=== PATIENT | female | born 1930 | race Caucasian/White ===

== ENCOUNTER 2018-03-21 08:47 | Day surgery (SDC) | payer MEDICARE, BC ==
[~2018-03-21] VITALS: Ht 157.5 cm; Wt 46.4 kg
--- NOTE | ~2018-03-21 | OP ---
PATIENT NAME: JOSÉ DALE MEDICAL RECORD: [id number] :32 LOCATION:D.OPS ADMISSION DATE: SURGEON: TIFFANI PHILLIPS DO DATE OF OPERATION: 03/21/2018 PROCEDURE: EGD with biopsies and balloon dilation. INDICATION FOR PROCEDURE: Abnormal barium esophagram and dysphagia. SCOPE: Olympus video gastroscope. MEDICATIONS: Propofol 130 mg IV per anesthesia. ESTIMATED BLOOD LOSS: Minimal. COMPLICATIONS: None. FINDINGS: Informed consent was given. The patient was made comfortable with the above medication. After reaching an adequate level of sedation by slow IV push, the patient was placed on her left side. The endoscope was advanced through the mouth under direct visualization to only the proximal esophagus. At 19 cm from the incisors just distal to the upper esophageal sphincter, an esophageal tumor was visualized. This tumor initially was circumferential, but as the endoscope was advanced down to approximately 21 cm, circumferential involvement could be seen as far distal as the endoscope could visualize in the esophagus. The endoscope was not able to traverse the obstruction. An 8-10 mm CRE dilating balloon was placed through the working channel of the endoscope gently and a dilation was performed up to 9 mm successfully. The endoscope was then again tried to pass through this obstruction unsuccessfully. Multiple cold forceps biopsies were taken and the procedure was terminated. The endoscope was withdrawn from the patient. The patient tolerated the procedure well and there were no complications other than inability to pass the endoscope through the esophageal tumor. IMPRESSION: Esophageal tumor involving the entire esophagus, starting at 19 cm and extending as far down as the endoscope could visualize throughout the esophagus circumferentially. PLAN AND RECOMMENDATIONS: 1. Discharge home when recovery parameters are met. 2. Followup biopsy specimen results. 3. Oncology consultation. 4. We will defer further imaging for staging purposes to oncology. 5. Recommend a liquid diet and trying to intake 3 Boost or Ensure shakes daily to maintain caloric needs. 6. Can consider a J-tube placement if further nutrition is necessary. TRANSINT:[id number] Voice Confirmation ID: [id number] DOCUMENT ID: [id number] OPERATIVE REPORT [id number] JOSÉ DALE TIFFANI PHILLIPS DO at 1148 CC: [id number] DICTATION DATE: 03/21/18 1323 ROCK LATHER: 03/21/18 1356 [facility] 03/21/18 [id number] [place] [address]
[2018-03-21 09:26] LABS: HEMATOCRIT 39.4 % (36.0-48.0); HEMOGLOBIN 12.8 g/dL (12-16); MCH 29.8 pg (26.0-34.0); MCHC 32.5 g/dL (31.0-37.0); MCV 91.6 fL (80.0-100.0); MEAN PLATELET VOLUME 9.6 fL (7.4-10.4); PLATELET COUNT 194 10x3/uL (130-400); WBC 6.8 10x3/uL (4.8-10.8)
[2018-03-21 09:42] LABS: CALC OSMOLALITY 280 mosm/kg (275-300); CALCIUM 9.1 mg/dL (8.5-10.1); CARBON DIOXIDE 34.7 mmol/L (21.0-32.0); CHLORIDE - SERUM 102 mmol/L (98-107); CREATININE - SERUM 0.6 mg/dL (0.6-1.3); GLUCOSE 102 mg/dL (74-106); POTASSIUM - SERUM 4.2 mmol/L (3.5-5.1); SODIUM 141 mmol/L (136-145); UREA NITROGEN 12 mg/dL (7-18); eGFR NON AFRICAN AMERICAN > 90 mL/min (90-120)
[2018-03-21 09:50] LABS: BASOPHILS 0.4 % (0-2); EOSINOPHILS 3.9 % (0-7); IMMATURE GRANULOCYTES 0.3 % (0-5); LYMPHOCYTES 20.7 % (15-50); MONOCYTES 4.5 % (2-11); NEUTROPHILS 70.2 % (40-80)
[2018-03-21 11:51] VITALS: BP 125/67; Ht 157.5 cm; Wt 46.4 kg
== END 2018-03-21 14:29 | disposition home or self-care (01) ==
LOC: D.OPS 08:47
PROVIDERS: Anesthesiology
DX: C15.9 Malignant neoplasm of esophagus, unspecified (principal)

== ENCOUNTER 2018-08-24 06:28 | Day surgery (SDC) | payer MEDICARE, BC ==
[~2018-08-24] VITALS: Ht 157.5 cm; Wt 46.4 kg
[2018-08-24 06:51] LABS: BASOPHILS 0.4 % (0-2); EOSINOPHILS 2.2 % (0-7); HEMATOCRIT 32.5 % (36.0-48.0); HEMOGLOBIN 10.4 g/dL (12-16); IMMATURE GRANULOCYTES 0.4 % (0-5); LYMPHOCYTES 9.8 % (15-50); MCH 30.5 pg (26.0-34.0); MCV 95.3 fL (80.0-100.0); MEAN PLATELET VOLUME 8.3 fL (7.4-10.4); NEUTROPHILS 79.2 % (40-80); RBC 3.41 10x6/uL (4.00-5.40); RDW 14.4 % (11.5-14.5); WBC 5.5 10x3/uL (4.8-10.8)
[2018-08-24 07:02] LABS: CALC OSMOLALITY 275 mosm/kg (275-300); CALCIUM 9.4 mg/dL (8.5-10.1); CARBON DIOXIDE 28.5 mmol/L (21.0-32.0); CHLORIDE - SERUM 101 mmol/L (98-107); CREATININE - SERUM 0.6 mg/dL (0.6-1.3); GLUCOSE 94 mg/dL (74-106); POTASSIUM - SERUM 3.6 mmol/L (3.5-5.1); SODIUM 139 mmol/L (136-145); UREA NITROGEN 8 mg/dL (7-18); eGFR NON AFRICAN AMERICAN > 90 mL/min (90-120)
[2018-08-24 07:03] LABS: PLATELET COUNT 246 10x3/uL (130-400)
[2018-08-24] MEDS ORDERED: MULTI-DAY VITAM1 TAB (08:02)
[2018-08-24 08:18] VITALS: BP 115/55; Ht 157.5 cm; Wt 46.4 kg
--- NOTE | 2018-08-29 15:47 | OP ---
PATIENT NAME: JOSÉ DALE MEDICAL RECORD: [id number] :32 LOCATION:[facility] ADMISSION DATE: SURGEON: TIFFANI PHILLIPS DO DATE OF OPERATION: 08/24/2018 PROCEDURE: EGD with balloon dilation. INDICATIONS FOR PROCEDURE: History of squamous cell cancer of the esophagus, status post chemoradiation. This is a restaging study. SCOPE: Olympus video gastroscope. MEDICATIONS: Propofol 100 mg IV per anesthesia. ESTIMATED BLOOD LOSS: Minimal. COMPLICATIONS: None immediate. FINDINGS: This is an 87-year-old female with a history of squamous cell carcinoma of the esophagus, which was diagnosed on an upper endoscopy on 03/21/2018. At that time, her tumor began at approximately 19 cm from the incisors and proceeded down the esophagus as far down as could be seen endoscopically. The endoscope could not be traversed through the tumor at that time, so the exact extent of tumor outside of imaging was unknown. Today's examination was for restaging status post chemotherapy and radiation therapy. DESCRIPTION OF PROCEDURE: The patient was given propofol slowly until she reached an adequate level of sedation. She was placed on her left side. The endoscope was advanced under direct visualization through the mouth through the posterior oropharynx into the esophagus. The scope could not be advanced beyond approximately 20 cm. At this point, the previous site of the tumor was encountered. Endoscopically, there were no abnormalities other than some stricturing of the esophagus status post treatment. The esophagus was smooth with no specific tumor tissue visualized. The diameter of the stricture was approximately 8-mm total. A 05/26/12 CRE balloon was placed through the working channel of the endoscope to try to facilitate passage of the endoscope. The entire esophagus was dilated to approximately 9-mm maximum. At this time, there was a moderate amount of bleeding and the small mucosal tear visualized. This still was not an adequate dilation for the endoscope to be passed through the esophagus. Due to the patient's condition and the fragility of the esophagus status post chemotherapy and radiation therapy and dilation with a mucosal tear, no biopsies were performed and the endoscope was not attempted to pass through this site again. That being said, endoscopic appearances looked dramatically improved from the previous examination with no obvious tumor tissue for any targeted biopsies. The endoscope was withdrawn from the patient. The patient tolerated the procedure well and there were no complications. IMPRESSIONS: Squamous cell carcinoma of the esophagus status post chemotherapy and radiation with very good effect. There is no residual tumor tissue visualized endoscopically on today's examination. No biopsies were taken today based on the events during the procedure. Please see above description. PLAN AND RECOMMENDATIONS: 1. Discharge home when recovery parameters are met. 2. Follow up in the oncology clinic as scheduled. OPERATIVE REPORT [id number] JOSÉ DALE 3. Recommend following the PET scans. Repeat endoscopy can be performed if needed in the future for direct visualization or if random biopsies are necessary. 4. I do not believe the narrowed esophagus will ever be able to be dilated enough to facilitate easy and safe passage of the endoscope. If the patient experiences significant dysphagia, which she denies at this point, symptomatic therapy such as an esophageal stent can be considered for long-term dilation. TRANSINT:[id number] Voice Confirmation ID: [id number] DOCUMENT ID: [id number] TIFFANI PHILLIPS DO at 1547 CC: [id number] DICTATION DATE: 08/24/18 1021 PEANUT VENDOR: 08/24/18 1146 [facility] 08/24/18 [facility] [address] [place] [address]
== END 2018-08-24 11:22 | disposition home or self-care (01) ==
LOC: D.OPS 06:28
PROVIDERS: Anesthesiology
DX: Z85.01 Personal history of malignant neoplasm of esophagus (principal); Z92.3 Personal history of irradiation; Z92.21 Personal history of antineoplastic chemotherapy; Z01.812 Encounter for preprocedural laboratory examination

== ENCOUNTER 2019-03-31 06:17 | Day surgery (SDC) | payer MEDICARE, BC ==
[2018-08-24 08:18] VITALS: Wt 46.3 kg
[~2019-03-31 06:17] MED LIST: CELEXA10 MG PO; MULTI-DAY VITAM1 TAB
[2019-03-31 06:45] LABS: BASOPHILS 0.2 % (0-2); EOSINOPHILS 3.1 % (0-7); HEMATOCRIT 37.6 % (36.0-48.0); HEMOGLOBIN 12.6 g/dL (12-16); IMMATURE GRANULOCYTES 0.2 % (0-5); LYMPHOCYTES 9.4 % (15-50); MCHC 33.5 g/dL (31.0-37.0); MCV 92.6 fL (80.0-100.0); MEAN PLATELET VOLUME 9.2 fL (7.4-10.4); MONOCYTES 7.9 % (2-11); NEUTROPHILS 79.2 % (40-80); PLATELET COUNT 216 10x3/uL (130-400); RBC 4.06 10x6/uL (4.00-5.40); RDW 12.8 % (11.5-14.5); WBC 5.2 10x3/uL (4.8-10.8)
[2019-03-31 06:48] LABS: ANION GAP 8.5 mmol/L (8-16); CALCIUM 9.7 mg/dL (8.5-10.1); CARBON DIOXIDE 33.1 mmol/L (21.0-32.0); CREATININE - SERUM 0.8 mg/dL (0.6-1.3); POTASSIUM - SERUM 3.6 mmol/L (3.5-5.1)
--- NOTE | 2019-04-04 11:07 | OP ---
PATIENT NAME: JOSÉ DALE MEDICAL RECORD: [id number] :32 LOCATION:D.[facility] ADMISSION DATE: SURGEON: RAMIREZ GAMBLE MD DATE OF OPERATION: 03/31/2019 PREOPERATIVE DIAGNOSIS: Radiation-induced stricture of the esophagus. POSTOPERATIVE DIAGNOSIS: Radiation-induced stricture of the esophagus. PROCEDURES: 1. Esophagoscopy with endoscopic placement of 23-mm x 153-mm partially covered esophageal stent under fluoroscopic guidance. 2. Immediate surgeon interpretation of the fluoroscopic images. SURGEON: Ramirez Gamble MD VACUUM DRUM DRIER OPERATOR: None. BLOOD LOSS: Minimal. ANESTHESIA: General. COMPLICATIONS: None. No radiologist was present for this procedure. Static fluoroscopic images were obtained and these are kept in the PACS system. The surgeon interpretation of the radiographic images is dictated within the body of this operative note. OPERATIVE COURSE: The patient was conveyed to the operating room electively on 03/31/2019. General anesthesia was induced by the anesthesia staff. The patient was positioned supine. A bite block was inserted. A gastroscope was inserted into the mouth. It was advanced easily into the hypopharynx. The esophagus was easily intubated. The stricture was noted. It was very tight. I was unable to traverse the strictured area with the gastroscope nor did I try to do so as the area was very friable, very tight and there was exudate over this area. The stricture site was marked with a metallic clip on the skin. The Glow 'N Tell Tape was applied over the chest as well. Through the endoscope, I advanced a 0.035 Jagwire. Under fluoroscopy, this could be seen coursing down the esophagus into the stomach. I then withdrew the gastroscope over the Jagwire. Over the Jagwire, I then loaded and advanced a Wallstent. It was advanced and deployed. I was satisfied with the deployment of the stent. I really could not deploy any higher as this would have been almost at the level of the cricopharyngeus and would have made swallowing difficult and would lead to intractable pain in the neck. The deployment device was then removed as was the wire. I then re-endoscoped the patient's esophagus. Although the stent had dilated the strictured area to some degree, we could still see a waist on the fluoroscopic images. In order to help prevent the stent from migrating, I took 2 endoscopic clips and clipped the stent to the surrounding esophagus to hopefully help prevent a distal migration. The gastroscope was then removed. The patient was then extubated and conveyed to the post-anesthesia care unit. I have given instructions regarding eating to OPERATIVE REPORT [id number] JOSÉ DALE the patient's . She needs to eat only thin foods. She is to sit straight up when she eats and swallow each carefully chewed bite of food with a little bit of liquid. Sitting up or standing up while she is eating will help as gravity will help pull the food down through the stent. I would like to see her in the office in about 4 weeks. The chest x-ray in the recovery room demonstrated that the stent was still in place and had not migrated. It also revealed that there was a secondary stent, which appeared to be a fully covered stent that was loose in the stomach and this is also per the patient's history. TRANSINT:[id number] Voice Confirmation ID: [id number] DOCUMENT ID: [id number] RAMIREZ GAMBLE MD at 1107 CC: MALATHI RANDLE MD, MAXINE REDDING and TIFFANI PHILLIPS DO [id number] DICTATION DATE: 04/01/19908 TENTER FRAME OPERATOR: 04/01/19 0950 [facility] 03/31/19 [id number] [place] [address]
== END 2019-03-31 13:30 | disposition home or self-care (01) ==
LOC: D.OPS 06:17 → D.PAN 09:00 → D.OPS 09:00
PROVIDERS: Anesthesiology; ATTEND Surgery
DX: K22.2 Esophageal obstruction (principal)

== ENCOUNTER → 2019-05-04 10:16 | Outpatient (CLI) | payer MEDICARE, BC ==
[2018-08-24 08:18] VITALS: BMI 18.7
== END | disposition home or self-care (01) ==
LOC: D.RAD 10:16
PROVIDERS: ATTEND Surgery
DX: K22.2 Esophageal obstruction (principal)

== ENCOUNTER 2019-05-31 06:33 | Day surgery (SDC) | payer MEDICARE, BC ==
[~2019-05-31] VITALS: Ht 157.5 cm; Wt 44.9 kg
[2019-05-31 06:57] LABS: BASOPHILS 0.3 % (0-2); EOSINOPHILS 2.5 % (0-7); HEMATOCRIT 36.9 % (36.0-48.0); HEMOGLOBIN 11.8 g/dL (12-16); IMMATURE GRANULOCYTES 0.3 % (0-5); LYMPHOCYTES 7.7 % (15-50); MCH 29.9 pg (26.0-34.0); MCV 93.4 fL (80.0-100.0); MEAN PLATELET VOLUME 8.5 fL (7.4-10.4); NEUTROPHILS 81.2 % (40-80); PLATELET COUNT 290 10x3/uL (130-400); RBC 3.95 10x6/uL (4.00-5.40); RDW 13.3 % (11.5-14.5); WBC 7.5 10x3/uL (4.8-10.8)
[2019-05-31 07:13] LABS: CALC OSMOLALITY 278 mosm/kg (275-300); CALCIUM 9.6 mg/dL (8.5-10.1); CARBON DIOXIDE 33.5 mmol/L (21.0-32.0); CHLORIDE - SERUM 101 mmol/L (98-107); CREATININE - SERUM 0.6 mg/dL (0.6-1.3); GLUCOSE 114 mg/dL (74-106); POTASSIUM - SERUM 4.3 mmol/L (3.5-5.1); SODIUM 140 mmol/L (136-145); UREA NITROGEN 9 mg/dL (7-18); eGFR NON AFRICAN AMERICAN > 90 mL/min (90-120)
[2019-05-31 07:16] LABS: INR 0.93 (0.85-1.17)
[2019-05-31] MEDS ORDERED: SYNTHROID25 MCG PO (07:41)
[2019-05-31 07:42] VITALS: BP 112/61; Ht 157.5 cm; Wt 44.9 kg
--- NOTE | 2019-05-31 08:06 | NUR ---
CALLED DR. Mistry at this time to orders for EGD with stent removal. DR. Mistry states to continue as ordered.
--- NOTE | 2019-05-31 11:49 | NUR ---
SCANT BLOODY SPUTUM AND SLIGHT NAUSEA @1126 ZOFRAN GIVEN @1131
--- NOTE | 2019-05-31 13:17 | NUR ---
1305-DISCHARGE CRITERIA MET. REMOVED IV FROM LEFT HAND WITH CATH INTACT,DISPOSED INTO SHARPS,COVERED SITE WITH BANDAID. REVIEWED POST OPERATIVE INSTRUCTIONS.VERBALIZED UNDERSTANDING. ESCORTED OUT VIA W/C WITH BROTHER IN LAW AWAITING TO DRIVE HOME. STABLE CONDITION WITH DISCHARGE INSTRUCTIONS AND SCRIPTS IN BROWN ENVELOPE.
--- NOTE | 2019-06-01 21:29 | OP ---
PATIENT NAME: JOSÉ DALE MEDICAL RECORD: [id number] :32 LOCATION:D.OPS ADMISSION DATE: SURGEON: RAMIREZ GAMBLE MD DATE OF OPERATION: 05/31/2019 PREOPERATIVE DIAGNOSES: 1. Indwelling esophageal stent, desires removal. 2. History of paroxysmal tight distal esophageal stricture. POSTOPERATIVE DIAGNOSES: 1. Indwelling esophageal stent, desires removal. 2. History of paroxysmal tight distal esophageal stricture. PROCEDURE: Esophagogastroscopy with stent removal. SURGEON: Ramirez Gamble MD ACCOUNT STRATEGIST: None. BLOOD LOSS: 50 cc. ANESTHESIA: General. COMPLICATIONS: None. The risks, possible complications and alternatives to the procedure were explained to the patient. She elects to proceed. The discussion specifically included, but was not limited to, bleeding requiring emergency reoperation, infection, esophageal perforation, mediastinitis. OPERATIVE COURSE: The patient was conveyed to the operating room electively on 05/31/2019. General anesthesia was induced by the anesthesia staff. A bite block was inserted. A gastroscope was inserted into the mouth. It was advanced easily into the hypopharynx. The esophagus was easily intubated as was the stomach. The abandoned stent was seen in the stomach. I then withdrew into the proximal esophagus. I grasped one of the fixation clips and removed it. I then grasped the string with the toothed grasper. I withdrew the stent in its entirety. I then re-endoscoped the esophagus and stomach. There had been no evidence of false passage or perforation. The endoscope was then withdrawn under direct vision. The patient will be dismissed home. I will see her in the office in 4 weeks. From my standpoint, she can have regular diet. TRANSINT:[id number] Voice Confirmation ID: [id number] DOCUMENT ID: [id number] OPERATIVE REPORT [id number] ALE DALEANOR Deshaun RAMIREZ GAMBLE MD at 2044 CC: MALATHI RANDLE MD and TIFFANI PHILLIPS DO [id number] DICTATION DATE: 05/31/19 1100 DEWATERER OPERATOR: 05/31/19 1219 [facility] 05/31/19 [id number] [place] [id number]
[2019-07-11] MEDS ORDERED: PROTONIX40 MG PO (13:52)
== END 2019-05-31 13:05 | disposition home or self-care (01) ==
LOC: D.OPS 06:33 → D.PAN 09:30 → D.OPS 13:05
PROVIDERS: Anesthesiology; ATTEND Surgery
DX: K22.8 Other specified diseases of esophagus (principal); Z97.8 Presence of other specified devices

== ENCOUNTER → 2019-06-21 09:25 | Outpatient (CLI) | payer MEDICARE, BC ==
[2019-05-31 07:42] VITALS: BMI 18.1
[~2019-06-21 09:25] MED LIST changes: +PROTONIX40 MG PO; +SYNTHROID25 MCG PO
== END | disposition home or self-care (01) ==
LOC: D.RAD 09:25
PROVIDERS: ATTEND Surgery
DX: R13.10 Dysphagia, unspecified (principal)

== ENCOUNTER 2019-07-12 07:02 | Day surgery (SDC) | payer MEDICARE, BC ==
[~2019-07-12] VITALS: Ht 157.5 cm; Wt 40.8 kg
--- NOTE | ~2019-07-12 | OP ---
PATIENT NAME: JOSÉ DALE MEDICAL RECORD: [id number] :32 LOCATION:D.OPS ADMISSION DATE: SURGEON: RAMIREZ GAMBLE MD DATE OF OPERATION: 07/12/2019 PREOPERATIVE DIAGNOSIS: Dysphagia. POSTOPERATIVE DIAGNOSES: 1. Recurrent esophageal strictures likely due to a recurrent malignancy. 2. Polypoid lesion proximally at 20 cm, which is likely related to the malignancy; however, it had a smooth covering. PROCEDURES: 1. Esophagogastroduodenoscopy with antral and esophageal biopsies. 2. Snare polypectomy of the polypoid mass within the esophagus at 20 cm. 3. Balloon dilation of esophagus to 33-Palestinian. SURGEON: Ramirez Gamble MD CHIEF OF FIELD OPERATIONS: None. BLOOD LOSS: Minimal. ANESTHESIA: General. COMPLICATIONS: None. This procedure was performed in the operating room as the patient is a risk for aspiration. OPERATIVE COURSE: The patient was conveyed the operating room electively on 07/12/2019. General anesthesia was induced by the anesthesia staff. A bite block was inserted. A gastroscope was inserted into the mouth. It was advanced easily into the hypopharynx. The esophagus was easily intubated. I then got to a point where I identified a polypoid mass, which was shaped like a balloon and appeared to have mucosa over it. I was not sure what this represented. I advanced a snare and was able to snare the base of the polyp. Utilizing the coagulation setting and the cut setting, I was able to perform a snare polypectomy. Unfortunately, the polyp fell down the esophagus and was ultimately lost and for that reason, we did not have a biopsy. I was unable to pass the gastroscope down the esophagus due to strictures. The first stricture was from 20 cm to 24 cm from the incisors. I predilated to 33-Palestinian with a balloon dilator. I then traversed this stricture and identified a fairly normal area of moderate esophagitis that did not appear to have a malignancy present. Just above the EG junction, there was another area, which was very tight and here again I could not traverse this area, which I believe represents circumferential recurrence of a malignancy. I advanced a blue dilator and predilated to 33-Palestinian. I was then able to traverse this secondary strictured area. The stomach was examined as was the duodenum. I withdrew into the stomach. Cold antral biopsies were obtained to check for Helicobacter pylori. A retroflexed view was obtained. I then unretroflexed the scope and removed it under direct vision. OPERATIVE REPORT [id number] JOSÉ DALE Upon pulling back through the esophagus, I noted no full thickness injury. There was some bleeding. Some trauma from the esophageal dilation as well. There was one area that was very firm, it appeared to be a recurrent malignancy and a cold endoscopic biopsy was performed here. The endoscope was then withdrawn under direct vision. I am going to plan for placement of another esophageal stent sometime in the future. I contacted Dr. Derick Joyner by phone and told him of the endoscopic findings. TRANSINT:[id number] Voice Confirmation ID: [id number] DOCUMENT ID: [id number] RAMIREZ GAMBLE MD CC: JOCELIN JOYNER MD and MAXINE REDDING [id number] DICTATION DATE: 07/19/191839 ACOUSTICAL TILE CARPENTERS SUPERVISOR: 07/20/19 0029 [facility] 07/12/19 [facility] [address] [place] [address]
[2019-07-12 07:32] LABS: APTT 27.6 SECONDS (22.8-39.4); INR 0.98 (0.85-1.17); PROTIME 12.5 SECONDS (11.6-15.0)
[2019-07-12 07:34] LABS: GLUCOSE 110 mg/dL (74-106); UREA NITROGEN 8 mg/dL (7-18)
[2019-07-12 07:35] LABS: CALC OSMOLALITY 274 mosm/kg (275-300); CALCIUM 9.3 mg/dL (8.5-10.1); CARBON DIOXIDE 31.4 mmol/L (21.0-32.0); CHLORIDE - SERUM 101 mmol/L (98-107); CREATININE - SERUM 0.6 mg/dL (0.6-1.3); SODIUM 138 mmol/L (136-145); eGFR NON AFRICAN AMERICAN > 90 mL/min (90-120)
[2019-07-12 07:53] VITALS: BP 126/59; Ht 157.5 cm; Wt 40.8 kg
[2019-07-12 08:10] LABS: BASOPHILS 0.4 % (0-2); EOSINOPHILS 3.1 % (0-7); HEMATOCRIT 35.9 % (36.0-48.0); HEMOGLOBIN 11.4 g/dL (12-16); IMMATURE GRANULOCYTES 0.2 % (0-5); LYMPHOCYTES 7.1 % (15-50); MCH 29.4 pg (26.0-34.0); MCHC 31.8 g/dL (31.0-37.0); MCV 92.5 fL (80.0-100.0); MEAN PLATELET VOLUME 9.3 fL (7.4-10.4); MONOCYTES 7.3 % (2-11); NEUTROPHILS 81.9 % (40-80); PLATELET COUNT 288 10x3/uL (130-400); RBC 3.88 10x6/uL (4.00-5.40); RDW 13.9 % (11.5-14.5); WBC 5.1 10x3/uL (4.8-10.8)
--- NOTE | 2019-07-12 15:25 | NUR ---
1515 DR GAMBLE HERE TO TALK WITH PT AND FAMILY. IV REMOVED AND PRESSURE HELD
== END 2019-07-12 15:45 | disposition home or self-care (01) ==
LOC: D.OPS 07:02 → D.PAN 12:15 → D.OPS 15:45
PROVIDERS: Anesthesiology; ATTEND Surgery
DX: K22.2 Esophageal obstruction (principal); Z85.01 Personal history of malignant neoplasm of esophagus; R13.10 Dysphagia, unspecified

== ENCOUNTER 2019-07-25 09:08 | Day surgery (SDC) | payer MEDICARE, BC ==
[~2019-07-25] VITALS: Ht 157.5 cm; Wt 45.0 kg
[2019-07-25 09:29] LABS: BASOPHILS 0 % (0-2); EOSINOPHILS 2.4 % (0-7); HEMATOCRIT 35.6 % (36.0-48.0); HEMOGLOBIN 11.3 g/dL (12-16); IMMATURE GRANULOCYTES 0.2 % (0-5); LYMPHOCYTES 9.8 % (15-50); MCH 29.1 pg (26.0-34.0); MCHC 31.7 g/dL (31.0-37.0); MCV 91.8 fL (80.0-100.0); MEAN PLATELET VOLUME 8.5 fL (7.4-10.4); MONOCYTES 9.2 % (2-11); NEUTROPHILS 78.4 % (40-80); PLATELET COUNT 246 10x3/uL (130-400); RBC 3.88 10x6/uL (4.00-5.40); RDW 13.5 % (11.5-14.5); WBC 5.1 10x3/uL (4.8-10.8)
[2019-07-25 09:36] LABS: APTT 26.5 SECONDS (22.8-39.4); INR 0.97 (0.85-1.17); PROTIME 12.4 SECONDS (11.6-15.0)
[2019-07-25 09:39] LABS: CALC OSMOLALITY 272 mosm/kg (275-300); CALCIUM 9.6 mg/dL (8.5-10.1); CARBON DIOXIDE 31.1 mmol/L (21.0-32.0); CHLORIDE - SERUM 101 mmol/L (98-107); CREATININE - SERUM 0.7 mg/dL (0.6-1.3); GLUCOSE 111 mg/dL (74-106); POTASSIUM - SERUM 3.8 mmol/L (3.5-5.1); SODIUM 137 mmol/L (136-145); UREA NITROGEN 6 mg/dL (7-18); eGFR NON AFRICAN AMERICAN 84 mL/min (90-120)
[2019-07-25 10:34] VITALS: Ht 157.5 cm; Wt 45.0 kg
--- NOTE | 2019-07-25 14:46 | NUR ---
DC INSTRUCTIONS GIVEN TO PT. STATES UNDERSTANDING. DC'D IV CATH FULLY INTACT.
--- NOTE | 2019-07-25 14:52 | NUR ---
PT WAS FOUND ON FLOOR NEXT TO CLOSET. PT STATES SHE "LOST MY BALANCE" AND HIT HER CHEEKBONE ON SIDE OF VITAL SIGN MACHINE. SLIGHT REDNESS NOTED TO RIGHT SIDE OF CHEEKBONE. PT STATES HITTING R FA ON BOTTOM OF VITAL SIGN MACHINE. BRUISING NOTED TO MEDIAL ASPECT OF FA BELOW THE ELBOW. PT STATES HAVING NO PAIN AT THIS TIME. CALLED DR. GAMBLE IN INFORM OF PT'S SITUATION. HE ORDERED X-RAY OF RIGHT ARM. WILL CONTINUE TO MONITOR.
--- NOTE | 2019-07-25 15:07 | NUR ---
PT BED WAS HIGH STRETCHER BED
--- NOTE | 2019-07-25 15:39 | NUR ---
PT LEFT UNIT VIA WC AT 1538. X-RAY RESULTS SHOWED NO FX OR SOFT TISSUE ABNORMAILITIES.
--- NOTE | 2019-07-26 11:02 | HP ---
PATIENT: JOSÉ DALE MEDICAL RECORD: [id number] ACCOUNT: [id number] LOCATION:[facility] : 32 ADMISSION DATE: 07/25/19 PCP: MALATHI RANDLE MD HISTORY AND PHYSICAL EXAMINATION PREOPERATIVE DIAGNOSIS: History of esophageal cancer. HISTORY OF PRESENT ILLNESS: The patient recently underwent EGD with esophageal dilation and biopsies. The biopsies failed to reveal a malignancy, although I believe that the patient does have a malignancy present. She has had a previous permanent esophageal stent removed. Another esophageal stent that was not placed by me ended up migrating into the stomach. Today, my plan is to perform an EGD with biopsies of the esophagus and possible esophageal dilation. SOCIAL HISTORY: Nonsmoker. PAST MEDICAL AND SURGICAL HISTORY: Esophageal cancer, history of hysterectomy, arthritis, hypothyroidism. ALLERGIES: SULFA, WHICH CAUSES A RASH. HOME MEDICINES: Celexa, Protonix, levothyroxine. PHYSICAL EXAMINATION: GENERAL: The patient does not appear acutely ill. She does not appear chronically ill. VITAL SIGNS: Reviewed. EARS: External ears appear normal. EYES: Extraocular movements are intact. NECK: Trachea is midline. CHEST: No intercostal retractions. PULMONARY: Nonlabored and no stridor. IMPRESSION: History of esophageal stricture, which I believe are malignant strictures. PLAN: EGD with biopsies in order to obtain a tissue diagnosis. TRANSINT:[id number] Voice Confirmation ID: [id number] DOCUMENT ID: [id number] RAMIREZ GAMBLE MD at 1102 CC: JOCELIN BARROSO MD and TIFFANI PHILLIPS DO [id number] DICTATION DATE: 07/25/19 1351 STOCKBROKER: 07/25/19 1747 [facility] 07/25/[address] [facility] [address] [place] [address]
--- NOTE | 2019-07-26 11:05 | OP ---
PATIENT NAME: JOSÉ DALE MEDICAL RECORD: [id number] :32 LOCATION:D.OPS ADMISSION DATE: SURGEON: RAMIREZ GAMBLE MD DATE OF OPERATION: 07/25/2019 PREOPERATIVE DIAGNOSIS: History of esophageal cancer with stricturing that was recently treated with balloon angioplasty. POSTOPERATIVE DIAGNOSES: 1. History of esophageal cancer with stricturing that was recently treated with balloon angioplasty with some restricturing; however, there is a patent lumen; however, the lumen would not allow me to advance the scope all the way down into the stomach. 2. There is a new nodular growth where I had removed a nodular growth in the past at about 20-22 cm. PROCEDURE: Esophagoscopy with biopsy. SURGEON: Ramirez Gamble MD CHEMISTRY INSTRUCTOR: None. BLOOD LOSS: 5 cc. ANESTHESIA: IV sedation. COMPLICATIONS: None. The risks, possible complications and alternatives to the procedure were explained to the patient. She elects to proceed. I told the patient that this was not going to be necessarily a therapeutic procedure, but a diagnostic procedure because we would like to get some tissue and make a tissue diagnosis. Specifically I am looking for a tissue diagnosis of a malignancy. ENDOSCOPIC COURSE: The patient was conveyed to endoscopy suite electively on 07/25/2019. IV sedation was induced by the anesthesia staff. A bite block was inserted. A gastroscope was inserted into the mouth. It was advanced easily into the hypopharynx. The esophagus was easily intubated. I advanced to about 20 cm and could not advance the scope further due to this nodular growth. The growth was removed utilizing the cold endoscopic biopsy forceps. I did not attempt to re-dilate after this for fear that I would cause an esophageal rupture. I did not try to force the scope down through the strictured esophagus. The endoscope was then withdrawn under direct vision. PLAN: I will plan for a permanent stent sometime in the future. Even if we have a biopsy that was negative for malignancy, she is going to need a stent to expand the esophagus, so that she can eat. TRANSINT:[id number] Voice Confirmation ID: [id number] DOCUMENT ID: [id number] OPERATIVE REPORT [id number] ALE DALEANOR Deshaun RAMIREZ GAMBLE MD at 1105 CC: JOCELIN BARROSO MD and MAXINE REDDING [id number] DICTATION DATE: 07/25/192103 SILVER SOLDERER: 07/25/19 2348 [facility] 07/25/19 [place] [id number] [place] [id number]
== END 2019-07-25 15:38 | disposition home or self-care (01) ==
LOC: D.OPS 09:08
PROVIDERS: Anesthesiology; ATTEND Surgery
DX: Z85.01 Personal history of malignant neoplasm of esophagus (principal)

== ENCOUNTER 2019-08-11 07:05 | Day surgery (SDC) | payer MEDICARE, BC ==
[~2019-08-11] VITALS: Ht 157.5 cm; Wt 43.5 kg
[~2019-08-11 07:05] MED LIST changes: +ASPERCREME 5 OZ5 OZ; +MEGACE40 MG PO; +MULTIVITAMIN
[2019-08-11 07:36] LABS: BASOPHILS 0.2 % (0-2); EOSINOPHILS 3.2 % (0-7); HEMATOCRIT 35.7 % (36.0-48.0); HEMOGLOBIN 11.4 g/dL (12-16); IMMATURE GRANULOCYTES 0.2 % (0-5); LYMPHOCYTES 12.1 % (15-50); MCH 29.2 pg (26.0-34.0); MCHC 31.9 g/dL (31.0-37.0); MCV 91.3 fL (80.0-100.0); MEAN PLATELET VOLUME 9.1 fL (7.4-10.4); MONOCYTES 8.1 % (2-11); NEUTROPHILS 76.2 % (40-80); PLATELET COUNT 284 10x3/uL (130-400); RBC 3.91 10x6/uL (4.00-5.40); RDW 13.8 % (11.5-14.5); WBC 6.2 10x3/uL (4.8-10.8)
[2019-08-11 07:37] LABS: APTT 24.5 SECONDS (22.8-39.4); INR 1.01 (0.85-1.17); PROTIME 12.8 SECONDS (11.6-15.0)
[2019-08-11 07:43] LABS: CALC OSMOLALITY 276 mosm/kg (275-300); CALCIUM 9.3 mg/dL (8.5-10.1); CARBON DIOXIDE 28.7 mmol/L (21.0-32.0); CHLORIDE - SERUM 103 mmol/L (98-107); CREATININE - SERUM 0.7 mg/dL (0.6-1.3); GLUCOSE 97 mg/dL (74-106); POTASSIUM - SERUM 3.7 mmol/L (3.5-5.1); SODIUM 140 mmol/L (136-145); UREA NITROGEN 8 mg/dL (7-18); eGFR NON AFRICAN AMERICAN 84 mL/min (90-120)
[2019-08-11] MEDS ORDERED: GUAIFENESI100 MG/5 M ×2 (10:00→10:02)
[2019-08-11] MEDS ORDERED: ACETAMINOPHEN325 MG (10:00)
[2019-08-11] MEDS ORDERED: LOPERAMIDE HCL2 MG (10:01)
[2019-08-11] MEDS ORDERED: MILK OF MAGNESI30 ML (10:01)
[2019-08-11] MEDS ORDERED: MELATONIN 3 MG1 TAB (10:01)
[2019-08-11] MEDS ORDERED: SENNA LAXATIVE8.6 MG (10:02)
[2019-08-11] MEDS ORDERED: TUMS X-STR300 MG (10:03)
[2019-08-11 11:00] VITALS: BP 135/60; Ht 157.5 cm; Wt 43.5 kg
--- NOTE | 2019-08-11 16:55 | NUR ---
PIV DC'D WITH TIP INTACT. DISCHARGE INSTRUCTIONS REVIEWED WITH PATIENT AND DAUGHTER. DISCHARGED HOME VIA WHEELCHAIR TO PRIVATE VEHICLE
--- NOTE | 2019-08-14 13:58 | OP ---
PATIENT NAME: JOSÉ DALE MEDICAL RECORD: [id number] :34 LOCATION:D[facility] ADMISSION DATE: SURGEON: RAMIREZ GAMBLE MD DATE OF OPERATION: 08/11/2019 PREOPERATIVE DIAGNOSIS: Recurrent tight esophageal stricture. POSTOPERATIVE DIAGNOSES: Recurrent tight esophageal stricture. PROCEDURE: Esophagoscopy with endoscopic placement of 23 mm x 105 mm [employer] WallFlex esophageal stent, and dye gastrogram. Surgeon interpretation of the fluoroscopic images. SURGEON: Ramirez Gamble MD DIETITIAN: None. BLOOD LOSS: Minimal. ANESTHESIA: General. COMPLICATIONS: None. The risks, possible complications and alternatives to the procedure were explained to the patient. She elects to proceed. The discussion specifically included, but was not limited to, bleeding requiring an emergency reoperation, infection, stent migration, and esophageal perforation. ENDOSCOPIC COURSE: The patient was conveyed the operating room electively on 08/11/2019. General anesthesia was induced by anesthesia staff. The anterior chest was sterilely prepped and draped. A bite block was inserted. A gastroscope was inserted into the mouth. It was advanced easily into the hypopharynx. The esophagus was easily intubated. I could only advance about 20 cm into the esophagus. I encountered the strictured area. This was marked on the patient's chest with metallic clips. A Glow 'N Tell tape was then applied over the chest as well. Through the endoscope, I advanced an 0.035 inch Jagwire. Over the 0.035 Jagwire, I advanced an angled 4-[place] diagnostic catheter into the stomach. The Jagwire was removed. I wanted to see where the distal end of the stricture was. While injecting dye, I performed a gastrogram of the esophagus. I continued to pull back on the 4-[place] diagnostic catheter until I encountered the EG junction, which was marked with metallic clips as well. I then readvanced the 4-[place] diagnostic catheter. The Jagwire was advanced. The 4-[place] diagnostic catheter was removed. There was no radiologist present for this procedure. Static and cine images were obtained and are kept in the PACS system. The surgeon interpretation of the radiographic images is dictated within the body of this operative note. Over the Jagwire, I advanced the esophageal stent. It was deployed under fluoroscopy. The Jagwire and the deployment device were then removed. I re-endoscoped the patient's esophagus. I felt that the stent was a little low. I advanced an endoscopic biopsy forceps, grasped the string at the top of the stent and pulled back about a centimeter. I then removed the biopsy OPERATIVE REPORT [id number] JOSÉ DALE. I advanced a metallic clip and deployed. It did not deploy in such a manner that it is fixated the stent against the esophageal wall. A second metallic clip was deployed and this one did grasp the esophageal wall as well as a stent and hopefully this will help prevent the stent from migrating distally as it expands. The endoscope was then withdrawn under direct vision. The patient was then extubated and conveyed to post-anesthesia care unit where she was in stable condition. TRANSINT:[id number] Voice Confirmation ID: [id number] DOCUMENT ID: [id number] RAMIREZ GAMBLE MD at 1358 CC: JOCELIN BARROSO MD, MALATHI RANDLE MD and TIFFANI PHILLIPS DO [id number] DICTATION DATE: 08/11/19 1517 GARNISHMENT SPECIALIST: 08/11/19 [id number] [facility] 08/11/19 [facility] [address] [place] [address]
== END 2019-08-11 16:55 | disposition home or self-care (01) ==
LOC: D.OPS 07:05 → D.PAN 10:45 → D.OPS 16:55
PROVIDERS: Anesthesiology; ATTEND Surgery
DX: K22.2 Esophageal obstruction (principal); Z85.01 Personal history of malignant neoplasm of esophagus; R13.10 Dysphagia, unspecified

== ENCOUNTER → 2019-09-07 15:19 | Outpatient (CLI) | payer MEDICARE, BC ==
[2019-08-11 11:00] VITALS: BMI 17.6
[~2019-09-07 15:19] MED LIST changes: +ACETAMINOPHEN325 MG; +GUAIFENESI100 MG/5 M; +LOPERAMIDE HCL2 MG; +MELATONIN 3 MG1 TAB; +MILK OF MAGNESI30 ML; +SENNA LAXATIVE8.6 MG; +TUMS X-STR300 MG
== END | disposition home or self-care (01) ==
LOC: D.RAD 15:19
PROVIDERS: ATTEND Surgery
DX: K22.2 Esophageal obstruction (principal)